=== PATIENT | male | born 1940 | race Caucasian/White ===

== ENCOUNTER 2016-12-19 09:50 | Emergency (ER) | payer MEDICARE, BC ==
--- NOTE | 2016-12-19 10:36 | ERPHSYRPT ---
- History of Present Illness Time Seen by Provider: 12/19/16 10:16 Source: patient, family Exam Limitations: no limitations Patient Subjective Stated Complaint: diarrhea x5 days Triage Nursing Assessment: diarrhea 5+ times daily for 5 days. went to [facility] yesterday and was given pedialyte and anti diarrheal (med gives heartburn but has taken 5 doses. denies abd pain. bs present. abd soft Physician History: The patient is a 76-year-old male with his complaining of 5 days of watery diarrhea without abdominal pain. He saw [facility] yesterday for this issue and was told to drink Pedialyte and take Levsin. He still has the problem and is feeling weak. He is not lightheaded. He has no abdominal pain. He has approximately 5 watery stools today. He denies nausea or vomiting. He has not had any change in his medicines recently. His past medical history is significant for CABG, high blood pressure, and high cholesterol. He's had shoulder surgeries and back surgeries. He's had no abdominal surgeries. Timing/Duration: day(s) (5) Severity: moderate Modifying Factors: Improves With: nothing Associated Symptoms: other (diarrhea), No nausea, No vomiting, No abdominal pain Allergies/Adverse Reactions: No Known Drug Allergies Allergy (Unverified 12/19/16 09:59) Home Medications: Aspirin 81 mg PO DAILY 05/13/16 [History] Diltiazem HCl 120 mg PO DAILY 05/13/16 [History] Ramipril [Altace] 10 mg PO DAILY 05/13/16 [History] Rivaroxaban [Xarelto] 15 mg PO DAILY 05/13/16 [History] Rosuvastatin Calcium [Crestor] 5 mg PO DAILY 05/13/16 [History] Hyoscyamine Sulfate [Levsin] 0.125 mg PO QIDPRN PRN 12/19/16 [History] Hx Tetanus, Diphtheria Vaccination/Date Given: Yes Hx Influenza Vaccination/Date Given: Yes Hx Pneumococcal Vaccination/Date Given: No Immunizations Up to Date: Yes - Review of Systems Constitutional: Weakness Eyes: No Symptoms Ears, Nose, & Throat: No Symptoms Respiratory: No Cough, No Dyspnea Cardiac: No Chest Pain, No Edema, No Syncope Abdominal/Gastrointestinal: Diarrhea Genitourinary Symptoms: No Dysuria Musculoskeletal: No Back Pain, No Neck Pain Skin: No Rash Neurological: No Dizziness, No Focal Weakness, No Sensory Changes Psychological: No Symptoms Endocrine: No Symptoms Hematologic/Lymphatic: No Symptoms Immunological/Allergic: No Symptoms All Other Systems: Reviewed and Negative - Past Medical History Pertinent Past Medical History: Yes Cardiac History: Arrhythmia, High Cholesterol, Hypertension - Past Surgical History Past Surgical History: Yes Cardiac: CABG Other Surgical History: bilat shoulder. vasectomy - Social History Smoking Status: Never smoker Exposure to second hand smoke: No Drug Use: none Patient Lives Alone: No - Nursing Vital Signs Nursing Vital Signs: Initial Vital Signs Temperature 98.3 F Temperature Source Oral Pulse Rate 64 Respiratory Rate 18 Blood Pressure [Left Arm] 138/80 Blood Pressure [Right Arm] 145/70 Pain Intensity 0 - Physical Exam General Appearance: no apparent distress, alert Eye Exam: PERRL/EOMI, eyes nml inspection Ears, Nose, Throat Exam: normal ENT inspection, TMs normal, pharynx normal, moist mucous membranes Neck Exam: normal inspection, non-tender, supple, full range of motion Respiratory Exam: normal breath sounds, lungs clear, No respiratory distress Cardiovascular Exam: regular rate/rhythm, normal heart sounds, normal peripheral pulses Gastrointestinal/Abdomen Exam: soft, normal bowel sounds, No tenderness, No mass Rectal Exam: not done Back Exam: normal inspection, normal range of motion, No CVA tenderness, No vertebral tenderness Extremity Exam: normal inspection, normal range of motion, pelvis stable Neurologic Exam: alert, oriented x 3, cooperative, normal mood/affect, nml cerebellar function, nml station & gait, sensation nml, No motor deficits Skin Exam: normal color, warm, dry, No rash Lymphatic Exam: No adenopathy SpO2 Interpretation: normal SpO2: 96 Oxygen Delivery: Room Air Ordered Tests: Active Orders 24 hr Category Date Time Status IV Insertion STAT Care 12/19/16 10:45 Active CBC W DIFF Stat Lab 12/19/16 10:40 Completed CMP Stat Lab 12/19/16 10:40 Completed Manual Differential NC Stat Lab 12/19/16 10:40 Completed Medication Summary Discontinued Medications Generic Name Dose Route Start Last Admin Trade Name Freq PRN Reason Stop Dose Admin Sodium Chloride 1,000 mls @ 999 mls/hr 12/19/16 10:45 12/19/16 10:51 Sodium Chloride 0.9% 1000 Ml IV 12/19/16 11:45 999 mls/hr .Q1H1M STA Administration Sodium Chloride Confirm 12/19/16 10:50 Sodium Chloride 0.9% 1000 Ml Administered 12/19/16 10:51 Dose 1,000 mls @ ud .ROUTE .K-MED ONE Lab/Rad Data: Laboratory Result Diagrams 12/19/16 10:40 12/19/16 10:40 Laboratory Results 12/19/16 12/19/16 12/19/16 Range/Units 10:50 10:40 10:40 WBC 4.6 (4.0-10.5) K/mm3 RBC 5.07 (4.1-5.6) M/mm3 Hgb 16.2 (12.5-18.0) gm/dl Hct 48.3 (42-50) % MCV 95.3 (78-100) fl MCH 32.0 (26-32) pg MCHC 33.5 (32-36) g/dl RDW 12.6 (11.5-14.0) % Plt Count 160 (150-450) K/mm3 MPV 10.6 H (6-9.5) fl Segmented Neutrophils 83 H (36.-66.) % Band Neutrophils 2 (0.0-2.0) % Lymphocytes (Manual) 14 L (24-44) % Monocytes (Manual) 1 (0.0-12.0) % Differential Comment NORMAL Platelet Estimate NORMAL (NORMAL) Sodium 139 (136-145) mEq/L Potassium 4.1 (3.5-5.1) mEq/L Chloride 105 (98-107) mEq/L Carbon Dioxide 23.7 (21-32) mEq/L Anion Gap 14.5 (5-15) MEQ/L BUN 22 H (9-20) mg/dL Creatinine 1.05 (0.55-1.30) mg/dl Estimated GFR > 60 ML/MIN Glucose 115 H (70-110) MG/DL Calcium 9.0 (8.5-10.1) mg/dL Total Bilirubin 0.40 (0.2-1.0) mg/dL AST 24 (15-37) U/L ALT 16 (12-78) U/L Alkaline Phosphatase 76 (46-116) U/L Serum Total Protein 7.8 (6.4-8.2) gm/dL Albumin 4.1 (3.4-5.0) g/dL Stl C. diff Tox B Gene NEGATIVE (NEGATIVE) C.difficile [id number] PRESUMPTIVE NEGATIVE (NEGATIVE) - Progress Progress: improved Counseled pt/family regarding: lab results, diagnosis - Departure Time of Disposition: 12:45 Departure Disposition: Home Clinical Impression: Diarrhea Condition: Stable Critical Care Time: No Additional Instructions: You have had several days of watery diarrhea. Your given normal saline by IV in the ER. Your lab tests were all normal and your stool test did not show any infectious agent at this time. Take ciprofloxacin 500 mg twice a day for 3 days. Start with a bland diet and advance as tolerated. Stay well hydrated. Follow-up Wednesday if the condition has not improved. Prescriptions: Ciprofloxacin [Cipro 500 MG] 1 tab PO BID #6 tablet
[2016-12-19] MEDS ORDERED: Sodium Chloride 0.9% 1000 ML 1,000 ML IV STA (10:45)
[2016-12-19] MEDS ORDERED: Sodium Chloride 0.9% 1000 ML 1,000 ML ONE (10:50)
[2016-12-19 11:06] LABS: Mean Cell Volume 95.3 fl (78-100); Mean Platelet Volume 10.6 fl (6-9.5); Platelet Count 160 K/mm3 (150-450); Red Blood Count 5.07 M/mm3 (4.1-5.6); Red Cell Distribution Width 12.6 % (11.5-14.0); White Blood Count 4.6 K/mm3 (4.0-10.5)
[2016-12-19 11:16] LABS: ALBUMIN 4.1 g/dL (3.4-5.0); ALKALINE PHOSPHATASE 76 U/L (46-116); ANION GAP 14.5 MEQ/L (5-15); BLOOD UREA NITROGEN 22 mg/dL (9-20); CHLORIDE 105 mEq/L (98-107); Carbon Dioxide 23.7 mEq/L (21-32); Glucose 115 MG/DL (70-110); Potassium 4.1 mEq/L (3.5-5.1); SGOT/AST 24 U/L (15-37); SGPT/ALT 16 U/L (12-78); SODIUM 139 mEq/L (136-145); Total Protein 7.8 gm/dL (6.4-8.2)
[2016-12-19 11:38] LABS: BAND 2 % (0.0-2.0); Total Cells Counted 100
[2016-12-19 11:39] LABS: Platelet Estimate NORMAL (NORMAL)
[2016-12-19 12:49] VITALS: O2SAT 96
[2016-12-19 12:55] VITALS: BP 136/80; PULSE 62
[2016-12-21 13:09] LABS: Giardia Antigen EIA Negative (Negative)
== END 2016-12-19 12:50 ==
LOC: ED 09:50
DX: R19.7 Diarrhea, unspecified (principal)
CPT/HCPCS: 36000; 36415; 80053; 85025; 87045; 87046; 87177; 87209; 87335; 87493; 96360; 99284

== ENCOUNTER 2017-06-10 07:21 | Day surgery (SDC) | payer MEDICARE, BC ==
[~2017-06-10 07:21] MED LIST: Lactated Ringers 1,000 ML IV SCH
[2017-06-10] MEDS ORDERED: Versed 2 MG/2 ML Injection IV ONE (07:22)
[2017-06-10] MEDS ORDERED: DIPRIVAN 200 MG/20 ML IV ONE (07:22)
[2017-06-10] MEDS ORDERED: Lactated Ringers 1,000 ML IV ONE (07:28)
--- NOTE | 2017-06-10 07:34 | HP ---
DATE OF SURGERY: 06/10/2017 ADMISSION DIAGNOSIS: Screening. ANTICIPATED PROCEDURE: Colonoscopy. HISTORY OF PRESENT ILLNESS: The patient presents for screening colonoscopy. PAST MEDICAL HISTORY: Hyperlipidemia, hypertension, ischemic heart disease, paroxysmal atrial fibrillation status post coronary artery bypass grafting four vessel 2001. ALLERGIES: PER CHART. MEDICATIONS: Aspirin, Crestor, diltiazem, Nitrostat, Ramipril, Xarelto. Xarelto on hold at this time. PAST SURGICAL HISTORY: None recently. SOCIAL HISTORY: Negative. FAMILY HISTORY: Negative. REVIEW OF SYSTEMS: Cardiac disease. Pulmonary negative. GI negative. negative. PHYSICAL EXAMINATION: VITAL SIGNS: Normal. CHEST: Clear. COR: Regular. ABDOMEN: No palpable organomegaly or mass. IMPRESSION: Long standing coronary disease, atrial fibrillation, hypertension, anticoagulation. He is requiring a screening colonoscopy and presents for such.
[2017-06-10 10:56] VITALS: BP 125/57; PULSE 51; O2SAT 97
--- NOTE | 2017-06-10 15:00 | OP ---
SURGERY DATE/TIME: 06/10/2017 0940 PREOPERATIVE DIAGNOSIS: Screening. POSTOPERATIVE DIAGNOSIS: Moderate sigmoid diverticulosis, moderate internal hemorrhoids. No mucosal lesions. No expected follow up unless symptoms. PROCEDURE: Colonoscopy complete to cecum. SURGEON: Phong Robb M.D. ANESTHESIA: MAC. COMPLICATIONS: None. CONDITION: Stable. INDICATION: The patient is 77 years old and presents for screening examination. DESCRIPTION OF PROCEDURE: Taken to the endoscopy suite. Left lateral decubitus position. After suitable sedation obtained the scope advanced to the cecum. Cecum, ileocecal valve, base of the cecum was normal. Ascending, hepatic, transverse, splenic, descending was normal. There was moderate diverticulosis about 20 pouches. There was no suggestion of any issues. There were moderate internal hemorrhoids. No external hemorrhoids. No blood on today's examination. No mucosal lesions on examination. 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 PLAN: There is no planned follow up as the patient did not have any polyps and he is near 78 years old. Follow up for symptoms only.
== END 2017-06-10 11:01 | disposition home or self-care (01) ==
LOC: SDC 07:21
PROVIDERS: ATTEND Surgery
PROC: 0DJD8ZZ Inspection of Lower Intestinal Tract, Via Natural or Artificial Opening Endoscopic (ICD-10-PCS; principal; 2017-06-10)
DX: Z12.11 Encounter for screening for malignant neoplasm of colon (principal); K57.90 Diverticulosis of intestine, part unspecified, without perforation or abscess without bleeding; K64.8 Other hemorrhoids; E78.5 Hyperlipidemia, unspecified; I10 Essential (primary) hypertension; I25.9 Chronic ischemic heart disease, unspecified; I48.0 Paroxysmal atrial fibrillation; Z79.01 Long term (current) use of anticoagulants; Z79.899 Other long term (current) drug therapy; Z98.61 Coronary angioplasty status
CPT/HCPCS: 00810; 99100; J2250; J2704

== ENCOUNTER 2020-06-13 09:41 | Emergency (ER) | payer MEDICARE, BC ==
[2020-06-13 10:14] VITALS: BP 166/72; PULSE 61; O2SAT 96
[2020-06-13] MEDS ORDERED: Adacel Vial IM ONE ×2 (10:17→10:22)
--- NOTE | 2020-06-13 10:24 | ERPHSYRPT ---
- History of Present Illness Source: patient Exam Limitations: no limitations Patient Subjective Stated Complaint: laceration Triage Nursing Assessment: pt to ED c/o lac to pad of L thumb less than 1 cm. bleeding controlled on arrival. pt does take xarelto. reports he was wood working and caught thumb in saw. unknown last tetanus vaccine. rates 09/11 pain. skin PWD. cap refill < 3 sec and no loss sensation distal to injury. Physician History: Superficial laceration L 1st digit tip/Good hemostasis/no need for repair/No previous-other injury/Pt needs tetanus. Timing/Duration: other (1 hr before arrival) Quality: other (Minimal pain at best) Location: other (L 1st digit tip) Possible Causes: other (Saw) Associated Symptoms: denies symptoms Allergies/Adverse Reactions: No Known Drug Allergies Allergy (Verified 06/13/20 10:16) Home Medications: Aspirin 81 mg PO DAILY 05/13/16 [History] Ramipril [Altace] 10 mg PO DAILY 05/13/16 [History] Rivaroxaban [Xarelto] 15 mg PO DAILY 05/13/16 [History] Rosuvastatin Calcium [Crestor] 5 mg PO DAILY 05/13/16 [History] dilTIAZem HCL [Diltiazem HCl] 120 mg PO DAILY 05/13/16 [History] Hx Tetanus, Diphtheria Vaccination/Date Given: No (unknown 06/2020) Hx Influenza Vaccination/Date Given: Yes Hx Pneumococcal Vaccination/Date Given: No Travel Risk - International Travel Have you traveled outside of the country in past 3 weeks: No - Coronavirus Screening Are you exhibiting any of the following symptoms?: No Close contact with a COVID-19 positive Pt in past 14-21 Days: No - Review of Systems Constitutional: No Symptoms Eyes: No Symptoms Ears, Nose, & Throat: No Symptoms Respiratory: No Symptoms Cardiac: No Symptoms Abdominal/Gastrointestinal: No Symptoms Genitourinary Symptoms: No Symptoms Neurological: No Symptoms Psychological: No Symptoms Endocrine: No Symptoms Hematologic/Lymphatic: No Symptoms Immunological/Allergic: No Symptoms - Past Medical History Pertinent Past Medical History: Yes Neurological History: No Pertinent History ENT History: No Pertinent History Cardiac History: Arrhythmia, High Cholesterol, Hypertension Respiratory History: No Pertinent History Endocrine Medical History: No Pertinent History Musculoskeletal History: Other GI Medical History: No Pertinent History History: No Pertinent History Psycho-Social History: No Pertinent History Male Reproductive Disorders: No Pertinent History Other Medical History: jens rotat. cuff injury - Past Surgical History Past Surgical History: Yes Neuro Surgical History: No Pertinent History Cardiac: CABG Respiratory: No Pertinent History Gastrointestinal: No Pertinent History Genitourinary: No Pertinent History Musculoskeletal: Orthopedic Surgery Male Surgical History: No Pertinent History Other Surgical History: bilat shoulder rotator cuff repair. vasectomy, discectomy - Social History Smoking Status: Never smoker Exposure to second hand smoke: No Drug Use: none Patient Lives Alone: No Significant Family History: no pertinent family hx - Nursing Vital Signs Nursing Vital Signs: Initial Vital Signs Temperature 97.8 F 06/13/20 10:08 Pulse Rate 61 06/13/20 10:08 Respiratory Rate 18 06/13/20 10:08 Blood Pressure 166/72 06/13/20 10:08 O2 Sat by Pulse Oximetry 96 06/13/20 10:08 Pain Scale Pain Intensity 3 - Physical Exam General Appearance: no apparent distress Eye Exam: PERRL/EOMI, eyes nml inspection Ears, Nose, Throat Exam: normal ENT inspection, TMs normal, pharynx normal Neck Exam: normal inspection, non-tender, supple, No meningismus, No mass, No Brudzinski, No Kernig's, No carotid bruit Respiratory Exam: normal breath sounds, lungs clear, airway intact Cardiovascular Exam: regular rate/rhythm, murmur (1-2/6 BLAISE) Gastrointestinal/Abdomen Exam: soft, normal bowel sounds, No tenderness Back Exam: normal inspection, normal range of motion, No CVA tenderness Extremity Exam: other (Suyperficial skin tear L distal 1st digit wo need for repair) Neurologic Exam: alert, oriented x 3, 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, 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, normal mood/affect, nml cerebellar function, nml station & gait, sensation nml, No sensory deficit Skin Exam: normal color, warm, dry, No rash Lymphatic Exam: No adenopathy SpO2 Interpretation: normal SpO2: 96 O2 Delivery: Room Air - Course Nursing assessment & vital signs reviewed: Yes Ordered Tests: Medication Summary Discontinued Medications Generic Name Dose Route Start Last Admin Trade Name Freq PRN Reason Stop Dose Admin Diphtheria/Tetanus/Acell Pertussis 0.5 ml 06/13/20 10:17 06/13/20 10:23 Adacel Vial IM 06/13/20 10:18 0.5 ml .ONCE ONE Administration Diphtheria/Tetanus/Acell Pertussis Confirm 06/13/20 10:22 Adacel Vial Administered 06/13/20 10:23 Dose 0.5 ml IM .STK-MED ONE - Progress Progress: improved Progress Note: 06/13/20 10:22 Superficial skin flap L 1st digit pad/[id number]-[id number] w hibiclens/no need for repair/Tdap Counseled pt/family regarding: need for follow-up - Departure Departure Disposition: Home Clinical Impression: Laceration Condition: Stable Critical Care Time: No Referrals: GUSTAVO DAVIS MD [Primary Care Provider] - Instructions: Wound Care (DC) Additional Instructions: Keep wound dry for 48 hours, then wash 1-2 times a day with soap/water Watch for signs of infection-redness/pain/pus/temperature greater than 100.5 Keep steri-strips on until they fall off or 10 days
== END 2020-06-13 10:46 | disposition home or self-care (01) ==
LOC: ED 09:41
DX: S61.012A Laceration without foreign body of left thumb without damage to nail, initial encounter (principal); I10 Essential (primary) hypertension; E78.00 Pure hypercholesterolemia, unspecified
CPT/HCPCS: 90471; 90715; 99283

== ENCOUNTER 2021-12-29 08:35 | Day surgery (SDC) | payer MEDICARE, BC ==
--- NOTE | 2021-12-29 08:09 | HP ---
DATE OF SURGERY: 12/29/2021 HISTORY OF PRESENT ILLNESS: The patient is an 81-year-old with right abdominal pain worse when out playing golf. Last colonoscopy was three to five years ago. He is here for evaluation. PAST MEDICAL HISTORY: Coronary artery disease, hypertension, hypercholesterolemia, history of atrial fibrillation, history of COVID-19 in the past. PAST SURGICAL HISTORY: Coronary artery bypass graft. Bilateral shoulder surgery. Vasectomy. Discectomy in the past. MEDICATIONS: Aspirin, diltiazem, Nitrostat PRN, Chlorthalidone, Ramipril, rosuvastatin for hyperlipidemia, Xarelto. ALLERGIES: NKDA. FAMILY HISTORY: Heart disease, diabetes. SOCIAL HISTORY: No smoking or alcohol abuse. REVIEW OF SYSTEMS: Fourteen systems reviewed. No chest pain or palpitations. Other systems negative or noncontributory as above and per preadmission questionnaire. PHYSICAL EXAMINATION: GENERAL: No acute distress. HEENT: Sclerae nonicteric. NECK: No JVD. CHEST: Equal excursion. CVS: Regular rate and rhythm. ABDOMEN: Soft. He had some tenderness right lower abdomen. No rebound. No guarding. No evidence of any large palpable hernia at this time. EXTREMITIES: No significant edema. NEURO: Alert, oriented, moving extremities symmetrically. RECTAL: Deferred timed to endoscopy exam. PSYCH: Appropriate mood and affect. LAB DATA AND TESTS: CT scan showed cholelithiasis. He is not having any major right upper quadrant pain at this point more lower abdominal pain. No evidence of any palpable large hernia at this time. IMPRESSION: Right lower abdominal pain unclear etiology. Last colonoscopy was about five years or so ago. He is in need of follow up colonoscopy to evaluate for colitis, neoplasia or other etiology. If this is negative may need to consider diagnostic laparoscopy if he has persistent pain to evaluate whether he had some sort of occult hernia and to also consider cholecystectomy given his gallstones. At this time will proceed first with colonoscopy. General risk of bleeding or infection, risk of bowel injury or perforation possibly requiring further procedure, risk of missed or nondiagnosis or incomplete exam, possibly requiring barium enema, other studies or procedures, general risk of anesthesia or sedation, risk of bowel prep or sedation but not limited to, consent obtained. Will proceed with outpatient colonoscopy under MAC anesthesia.
[2021-12-29] MEDS ORDERED: Lactated Ringers 1,000 ML IV ONE (08:44)
[2021-12-29 12:27] VITALS: PULSE 72; O2SAT 99
[2021-12-29 12:42] VITALS: BP 172/70
--- NOTE | 2021-12-30 08:18 | OP ---
SURGERY DATE/TIME: 12/29/2021 1118 PREOPERATIVE DIAGNOSIS: History of right side abdominal pain of unclear etiology. POSTOPERATIVE DIAGNOSES: 1) ASA Class III. 2) Fair bowel prep. 3) Small left colon diverticula. 4) Small very early cecal polyp versus hyperplastic lesion. 5) Small early polyp versus hyperplastic lesion. 6) Small early polyp versus hyperplastic lesion ascending colon. 7) Fair bowel prep. 8) Withdrawal time approximately 9 minutes. PROCEDURES: 1) Colonoscopy to terminal ileum. 2) Retrograde Ileoscopy. 3) Random cold biopsy of ileum to evaluate for microscopic ileitis. 4) Random cold biopsy of colon to evaluate for microscopic colitis. 5) Hot biopsy polypectomy very early polyp versus hyperplastic lesion of cecum. 6) Hot biopsy polypectomy small early polyp versus hyperplastic lesion of ascending colon. SURGEON: Dr. Amrik Flores. ANESTHESIA: MAC. ESTIMATED BLOOD LOSS: Minimal. INDICATIONS: As noted above. Risks and benefits explained in detail but not limited to and consent obtained. DESCRIPTION OF PROCEDURE AND FINDINGS: The patient is taken to the endoscopy room. MAC anesthesia induced. After official time out and no disagreement with planned procedure, video colonoscope inserted and passed up through the slightly tortuous sigmoid, descending, transverse and ascending colon around to the cecum. Appendiceal orifice and valve well visualized and photo documented. Scope passed up the terminal ileum which was also photo documented. It was fairly unremarkable. Given his right sided abdominal pain, it was felt he warranted biopsy to rule out microscopic ileitis or microscopic colitis. Random cold biopsies from the ileum were sent for histology. Random cold biopsies of the colon were also sent to evaluate for microscopic colitis. Good hemostasis was noted. There was a small early polyp versus hyperplastic lesion in the cecum removed with hot biopsy forceps with brief bursts of cautery. Another small early polyp versus hyperplastic lesion ascending colon removed with hot biopsy polypectomy with brief bursts of cautery. Good hemostasis was noted. Otherwise the scope is slowly and carefully withdrawn over the next 9 minutes. He had a few scattered small diverticula in the left colon. There were no signs of any other large polyps, masses or any other obstructing lesion. Findings discussed with the family out in the waiting area.
== END 2021-12-29 12:30 | disposition home or self-care (01) ==
LOC: SDC 08:35
PROVIDERS: ATTEND Surgery
DX: K57.30 Diverticulosis of large intestine without perforation or abscess without bleeding (principal); D12.2 Benign neoplasm of ascending colon; R10.84 Generalized abdominal pain
CPT/HCPCS: 99100

== ENCOUNTER 2022-06-01 04:21 | Emergency (ER) | payer MEDICARE, BC ==
[2022-06-01] MEDS ORDERED: BABY ASPIRIN 81 MG CHEW PO ONE (04:48)
[2022-06-01] MEDS ORDERED: GI COCKTAIL 45 ML (Maalox/Lidocaine) PO ONE (04:49)
--- NOTE | 2022-06-01 04:49 | ERPHSYRPT ---
- History of Present Illness Historian: patient Exam Limitations: no limitations Patient Subjective Stated Complaint: pt states "since around last night before bed I have been having this upper stomach pain." Triage Nursing Assessment: pt ambulatory to bed by self, a&ox3, pt c/o epigastric pain that started around 212905/31/22, pt has hx of CA, CABG, high cholesterol, afib, and HTN. pt is hypertensive, pt c/o 4/10 burning pain Timing/Duration: day(s), intermittent, worse Quality: burning Abdominal Pain Onset Location: epigastric Pain Radiation: no radiation Severity of Pain-Max: moderate Severity of Pain-Current: mild (To moderate) Hx Tetanus, Diphtheria Vaccination/Date Given: Yes Hx Influenza Vaccination/Date Given: Yes Hx Pneumococcal Vaccination/Date Given: No Immunizations Up to Date: No - History of Present Illness Time Seen by Provider: 06/01/22 04:25 Physician History: This is an 81-year-old white male who presents with caudal substernal/epigastric discomfort described as a burning. Patient has significant cardiac history that includes atrial fibrillation, hypertension, coronary artery bypass graft on Xarelto and aspirin and hyperlipidemia. Patient's symptoms actually began 2 nights ago. However 2 nights ago his symptoms as described above presented and then relatively swiftly resolved. However it recurred again last night approximately 9:30 PM and it has persisted. He has had no nausea vomiting or diarrhea. He has no cough. He has not had a fever. 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 Edmond (RICKIEALEXANDRA F.) Allergies/Adverse Reactions: No Known Drug Allergies Allergy (Verified 06/01/22 04:23) Home Medications: Aspirin 81 mg PO DAILY 05/13/16 [History] Rosuvastatin Calcium [Crestor] 5 mg PO DAILY 05/13/16 [History] dilTIAZem HCL [Diltiazem HCl] 120 mg PO DAILY 05/13/16 [History] ramipriL [Altace] 10 mg PO DAILY 05/13/16 [History] Travel Risk - International Travel Have you traveled outside of the country in past 3 weeks: No - Coronavirus Screening Are you exhibiting any of the following symptoms?: No Close contact with a COVID-19 positive Pt in past 14-21 Days: No - Vaccine Status Have you recieved a Covid-19 vaccination: Yes 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: [employer] - Vaccination Dates Date of 2cond Vaccination (if applicable): 2020 - Review of Systems Constitutional: No Symptoms Eyes: No Symptoms Ears, Nose, & Throat: No Symptoms Respiratory: No Symptoms Abdominal/Gastrointestinal: Abdominal Pain (Upper epigastric burning) Genitourinary Symptoms: No Symptoms Musculoskeletal: No Symptoms Skin: No Symptoms Neurological: No Symptoms Psychological: No Symptoms Endocrine: No Symptoms Hematologic/Lymphatic: No Symptoms Immunological/Allergic: No Symptoms All Other Systems: Reviewed and Negative - Past Medical History Pertinent Past Medical History: Yes Neurological History: No Pertinent History ENT History: No Pertinent History Cardiac History: Arrhythmia, High Cholesterol, Hypertension Respiratory History: No Pertinent History Endocrine Medical History: No Pertinent History Musculoskeletal History: Other GI Medical History: No Pertinent History History: No Pertinent History Psycho-Social History: No Pertinent History Male Reproductive Disorders: No Pertinent History Other Medical History: jens rotat. cuff injury - Past Surgical History Past Surgical History: Yes Neuro Surgical History: No Pertinent History Cardiac: CABG Respiratory: No Pertinent History Gastrointestinal: No Pertinent History Genitourinary: No Pertinent History Musculoskeletal: Orthopedic Surgery Male Surgical History: No Pertinent History Other Surgical History: bilat shoulder rotator cuff repair. vasectomy, discectomy - Social History Smoking Status: Never smoker Exposure to second hand smoke: No Drug Use: none Patient Lives Alone: No Significant Family History: no pertinent family hx - Physical Exam General Appearance: no apparent distress, alert, anxiety Eye Exam: PERRL/EOMI, eyes nml inspection Ears, Nose, Throat Exam: normal ENT inspection, moist mucous membranes Neck Exam: normal inspection, non-tender, supple, carotid bruit Respiratory Exam: normal breath sounds, chest tenderness (Caudal sternal burning), lungs clear, airway intact, No respiratory distress Cardiovascular Exam: regular rate/rhythm, normal heart sounds, normal peripheral pulses Gastrointestinal/Abdomen Exam: soft, normal bowel sounds, tenderness (Mild upper epigastric burning), No guarding Rectal Exam: not done Back Exam: normal inspection, normal range of motion, No CVA tenderness, No vertebral tenderness Extremity Exam: normal inspection, normal range of motion, pelvis stable Neurologic Exam: alert, oriented x 3, cooperative, apparel manager II-XII nml as tested, normal mood/affect, nml cerebellar function, nml station & gait, sensation nml Skin Exam: normal color, warm, dry Lymphatic Exam: No adenopathy SpO2 Interpretation: normal SpO2: 97 O2 Delivery: Room Air - Nursing Vital Signs Nursing Vital Signs: Initial Vital Signs Temperature 97.6 F 06/01/22 04:22 Pulse Rate 66 06/01/22 04:22 Respiratory Rate 18 06/01/22 04:22 Blood Pressure 204/81 06/01/22 04:22 O2 Sat by Pulse Oximetry 97 06/01/22 04:22 Pain Scale Pain Intensity [Upper Abdomen] 4 Pain Intensity 0 - Course Nursing assessment & vital signs reviewed: Yes EKG Interpreted by Me: RATE (66), Sinus Rhythm, NORMAL AXIS, NORMAL INTERVALS, NORMAL QRS, Non-specific ST Changes, Other (PVCs without evidence of any acute ischemic changes.) Ordered Tests: Active Orders 24 hr Category Date Time Status EKG-ER Only STAT Care 06/01/22 04:48 Active IV Insertion STAT Care 06/01/22 04:48 Active Pulse Oximetry (ED) STAT Care 06/01/22 04:48 Active CHEST 1 VIEW (PORTABLE) Stat Exams 06/01/22 04:48 Taken CBC W DIFF Stat Lab 06/01/22 04:53 Completed CMP Stat Lab 06/01/22 04:53 Completed D-DIMER QUANTITATIVE Stat Lab 06/01/22 04:53 Completed NT PRO BNP Stat Lab 06/01/22 04:53 Completed TROPONIN Q4H Lab 06/01/22 04:53 Completed TROPONIN Q4H Lab 06/01/22 08:00 Completed TROPONIN Q4H Lab 06/01/22 13:00 Ordered Medication Summary Discontinued Medications Generic Name Dose Route Start Last Admin Trade Name Freq PRN Reason Stop Dose Admin Al Hydrox/Mg Hydrox/Simethicone Confirm 06/01/22 04:53 Mag Hydrox/Al Hydrox/Simeth 30 Ml Udcup Administered 06/01/22 04:54 Dose 30 ml .ROUTE .STK-MED ONE Aspirin 324 mg 06/01/22 04:48 06/01/22 04:52 Aspirin 81 Mg Tab.Chew PO 06/01/22 04:49 324 mg STAT ONE Administration Lidocaine HCl Confirm 06/01/22 04:52 Lidocaine Hcl 2% Viscous 15 Ml Udcup Administered 06/01/22 04:53 Dose 15 ml .ROUTE .STK-MED ONE Magnesium Hydroxide 45 ml 06/01/22 04:49 06/01/22 04:54 Mag Hydrx/Alum Hyd/Simeth/Lido 45 Ml Bottle PO 06/01/22 04:50 45 ml STAT ONE Administration Lab/Rad Data: Laboratory Result Diagrams 06/01/22 04:53 06/01/22 04:53 Laboratory Results 06/01/22 06/01/22 06/01/22 Range/Units 08:00 04:53 04:53 WBC (4.0-10.5) x10^3/uL RBC (4.1-5.6) x10^6/uL Hgb (12.5-18.0) g/dL Hct (42-50) % MCV (78-100) fL MCH (26-32) pg MCHC (32-36) g/dL RDW (11.5-14.0) % Plt Count (150-450) x10^3/uL MPV (7.5-11.0) fL Gran % (36.0-66.0) % Immature Gran % (Auto) (0.00-0.4) % Nucleat RBC Rel Count (0.00-0.1) % Eos # (Auto) (0-0.5) x10^3/uL Immature Gran # (Auto) (0.00-0.03) x10^3u/L Absolute Lymphs (auto) (1.0-4.6) x10^3/uL Absolute Monos (auto) (0.0-1.3) x10^3/uL Absolute Nucleated RBC (0.00-0.01) x10^3u/L Lymphocytes % (24.0-44.0) % Monocytes % (0.0-12.0) % Eosinophils % (0.00-5.0) % Basophils % (0.0-0.4) % Absolute Granulocytes (1.4-6.9) x10^3/uL Basophils # (0-0.4) x10^3/uL D-Dimer 0.25 (0.0-0.50) mg/L Sodium (137-145) mmol/L Potassium (3.5-5.1) mmol/L Chloride (98-107) mmol/L Carbon Dioxide (22-30) mmol/L Anion Gap (5-15) MEQ/L BUN (9-20) mg/dL Creatinine (0.66-1.25) mg/dL Estimated GFR ML/MIN Glucose (74-106) mg/dL Calcium (8.4-10.2) mg/dL Total Bilirubin (0.2-1.3) mg/dL AST (17-59) U/L ALT (0-50) U/L Alkaline Phosphatase (38-126) U/L Troponin I < 0.012 < 0.012 (0.000-0.034) ng/mL NT-Pro-B Natriuret Pep (0-1800) pg/mL Serum Total Protein (6.3-8.2) g/dL Albumin (3.5-5.0) g/dL 06/01/22 06/01/22 Range/Units 04:53 04:53 WBC 8.0 (4.0-10.5) x10^3/uL RBC 4.50 (4.1-5.6) x10^6/uL Hgb 14.3 (12.5-18.0) g/dL Hct 43.0 (42-50) % MCV 95.6 (78-100) fL MCH 31.8 (26-32) pg MCHC 33.3 (32-36) g/dL RDW 12.3 (11.5-14.0) % Plt Count 213 (150-450) x10^3/uL MPV 9.9 (7.5-11.0) fL Gran % 70.3 H (36.0-66.0) % Immature Gran % (Auto) 0.3 (0.00-0.4) % Nucleat RBC Rel Count 0.0 (0.00-0.1) % Eos # (Auto) 0.08 (0-0.5) x10^3/uL Immature Gran # (Auto) 0.02 (0.00-0.03) x10^3u/L Absolute Lymphs (auto) 1.57 (1.0-4.6) x10^3/uL Absolute Monos (auto) 0.66 (0.0-1.3) x10^3/uL Absolute Nucleated RBC 0.00 (0.00-0.01) x10^3u/L Lymphocytes % 19.7 L (24.0-44.0) % Monocytes % 8.3 (0.0-12.0) % Eosinophils % 1.0 (0.00-5.0) % Basophils % 0.4 (0.0-0.4) % Absolute Granulocytes 5.61 (1.4-6.9) x10^3/uL Basophils # 0.03 (0-0.4) x10^3/uL D-Dimer (0.0-0.50) mg/L Sodium 135 L (137-145) mmol/L Potassium 4.0 (3.5-5.1) mmol/L Chloride 105 (98-107) mmol/L Carbon Dioxide 23 (22-30) mmol/L Anion Gap 10.7 (5-15) MEQ/L BUN 25 H (9-20) mg/dL Creatinine 0.90 (0.66-1.25) mg/dL Estimated GFR > 60.0 ML/MIN Glucose 124 H (74-106) mg/dL Calcium 9.1 (8.4-10.2) mg/dL Total Bilirubin 0.40 (0.2-1.3) mg/dL AST 24 (17-59) U/L ALT 22 (0-50) U/L Alkaline Phosphatase 99 (38-126) U/L Troponin I (0.000-0.034) ng/mL NT-Pro-B Natriuret Pep 207 (0-1800) pg/mL Serum Total Protein 7.1 (6.3-8.2) g/dL Albumin 4.3 (3.5-5.0) g/dL - Progress Progress: improved, re-examined Counseled pt/family regarding: lab results, diagnosis, need for follow-up, rad results - Progress Progress Note: 06/01/22 05:23 Chest x-ray shows chronic changes and no acute cardiopulmonary process. 06/01/22 06:17 Medical decision making: This patient now states that he has complete resolution of his chest pain. He did eat a hamburger the night before last. Last night he had pizza. Patient does not appear to have a cardiac issue but may be a gastritis or gastroesophageal reflux issue. His chest pain has resolved. We will keep him here to obtain a 3-4-hour troponin level. If this is normal the plan will be to discharge him to home. Transfer of care this patient will be to Dr. Colt Syed at shift change. He will follow-up with that test result and make final disposition. (ALEXANDRA DAMIAN) Patient endorsed Dr. Syed at approximately [address] Syed advised to follow-up on troponin #2 and if troponin #2 is negative patient will be discharged home. Dr. Damian does not feel patient's pain is cardiac in nature. Patient appears to be experiencing burning epigastric pain likely due to a fatty diet over the past couple days. Patient reassessed. He is well. No complaints. No chest pain. No indication for further work-up at this time. Will discharge home. Patient advised and agrees to follow-up with primary care doctor within 48 hours for evaluation. Patient will try [id number] Pepcid for his symptoms. Pantoprazole may be an option if Pepcid is not beneficial Portions of this note were created with voice recognition technology. There may be grammatical, spelling, punctuation or sound alike errors 06/01/22 08:49 (COLT SYED) - Departure Departure Disposition: Home Critical Care Time: No - Departure Clinical Impression: Non-cardiac chest pain Condition: Stable Referrals: GUSTAVO DAVIS MD [Primary Care Provider] - Follow up/PCP as directed Additional Instructions: Continue your medication as prescribed. Call your financial controller today and make them aware of your visit to the emergency department. Follow-up with them for further instructions and further evaluation and management. Avoid fatty greasy spicy foods at night.
[2022-06-01] MEDS ORDERED: XYLOCAINE VISCOUS 2% 15 ML CUP ONE (04:52)
[2022-06-01] MEDS ORDERED: MAALOX ES 30 ML UNIT DOSE ONE (04:53)
[2022-06-01 04:56] LABS: Absolute Neutrophil Ct (ANC) 5.61 x10^3/uL (1.4-6.9); Basophil (Absolute #) 0.03 x10^3/uL (0-0.4); Eosinophil (Absolute #) 0.08 x10^3/uL (0-0.5); Hemoglobin 14.3 g/dL (12.5-18.0); Lymphocyte (Absolute #) 1.57 x10^3/uL (1.0-4.6); Lymphocytes % 19.7 % (24.0-44.0); Mean Cell Volume 95.6 fL (78-100); Mean Corpuscular Hemoglobin 31.8 pg (26-32); Mean Corpuscular Hgb Concent. 33.3 g/dL (32-36); Mean Platelet Volume 9.9 fL (7.5-11.0); Monocyte (Absolute #) 0.66 x10^3/uL (0.0-1.3); Monocytes % 8.3 % (0.0-12.0); Neutrophil % 70.3 % (36.0-66.0); Platelet Count 213 x10^3/uL (150-450); Red Cell Distribution Width 12.3 % (11.5-14.0)
[2022-06-01 05:12] LABS: ALBUMIN 4.3 g/dL (3.5-5.0); ALKALINE PHOSPHATASE 99 U/L (38-126); ANION GAP 10.7 MEQ/L (5-15); BLOOD UREA NITROGEN 25 mg/dL (9-20); CHLORIDE 105 mmol/L (98-107); Calcium 9.1 mg/dL (8.4-10.2); Carbon Dioxide 23 mmol/L (22-30); EST GLOMERULAR FILTRATION RATE > 60.0 ML/MIN; Glucose 124 mg/dL (74-106); NT PRO BNP 207 pg/mL (0-1800); SGOT/AST 24 U/L (17-59); SGPT/ALT 22 U/L (0-50); SODIUM 135 mmol/L (137-145); Total Protein 7.1 g/dL (6.3-8.2)
[2022-06-01 07:02] VITALS: BP 169/83; PULSE 56; O2SAT 94
--- NOTE | 2022-06-01 08:49 | XRAY ---
Indication: Chest pain. Comparison: June 22, 2006 Portable chest again hyperinflated with new minimal left base subsegmental atelectasis/scarring. Remaining heart and lungs unremarkable again with incidental CABG and tiny scattered calcified granulomas. Bony thorax intact again with osteopenia, degenerative changes, and cervical fusion hardware. Impression: Continued nonacute hyperinflated chest with chronic features.
== END 2022-06-01 09:11 | disposition home or self-care (01) ==
LOC: ED 04:21
DX: R07.89 Other chest pain (principal); R10.13 Epigastric pain; I10 Essential (primary) hypertension; E78.5 Hyperlipidemia, unspecified; Z79.01 Long term (current) use of anticoagulants; Z79.899 Other long term (current) drug therapy
CPT/HCPCS: 36000; 36415; 71045; 80053; 83880; 84484; 85025; 85379; 93005; 94760; 99284; A9270-GY

== ENCOUNTER 2022-07-20 08:34 | Day surgery (SDC) | payer MEDICARE, BC ==
--- NOTE | 2022-07-20 08:09 | HP ---
DATE OF SURGERY: 07/20/2022 HISTORY OF PRESENT ILLNESS: The patient is an 82-year-old with history develops once a year, a month or six weeks ago had a large hamburger and he had epigastric pain about midnight. He had puked and the next night he had more symptoms worse than biliary colic. He is interested in cholecystectomy. PAST MEDICAL HISTORY: He has heart disease. He had triple bypass in the past. He has hearing aids. PAST SURGICAL HISTORY: Triple bypass. Discectomy. Vasectomy. Bilateral rotator cuff surgery in the past. MEDICATIONS: Aspirin, Crestor for some hyperlipidemia, diltiazem, Ramipril, Xarelto. ALLERGIES: NKDA. FAMILY HISTORY: Negative in regards to this problem. SOCIAL HISTORY: No smoking or alcohol abuse. REVIEW OF SYSTEMS: Fourteen systems reviewed. No chest pain or palpitations. Pertinent for chronic illnesses mentioned above. Other systems negative or noncontributory as above and per preadmission questionnaire. PHYSICAL EXAMINATION: BMI 24. GENERAL: No acute distress. HEENT: Sclerae nonicteric. NECK: No JVD. CHEST: Equal excursion, nonlabored breathing. CVS: Regular rate and rhythm. ABDOMEN: Soft. No peritoneal signs. EXTREMITIES: No significant edema. NEURO: Alert, oriented, moving extremities symmetrically. PSYCH: Appropriate mood and affect. SKIN: Dry. IMPRESSION: Acute exacerbation of chronic cholecystitis, symptomatic cholelithiasis. I feel he will benefit from cholecystectomy. Risks and benefits explained in detail including but not limited to bleeding or infection, risk of trocar injury or hernia, risk of bowel, bladder or blood vessel injury, risk of bile leak, bile duct injury, retained stone or sludge possibly requiring further procedure either open or ERCP, general risk of anesthesia, deep venous thrombosis, pulmonary embolism, perioperative risk of aches, pains, bloating, constipation and/or loose stools possibly even chronic in nature. He understands and will proceed with laparoscopic cholecystectomy with possible open as an outpatient.
[~2022-07-20 08:34] MED LIST changes: +Lactated Ringers 1,000 ML IV ONE; -Lactated Ringers 1,000 ML IV SCH; +Sensorcaine 0.25% 10 ML ONE
[2022-07-20] MEDS ORDERED: MEFOXIN 2 GM PREMIX** 2 GM/50 ML ML IV ONE (09:19)
[2022-07-20] MEDS ORDERED: Lactated Ringers 1,000 ML IV ONE (09:19)
[2022-07-20] MEDS ORDERED: Lactated Ringers 1,000 ML IV SCH (09:30)
[2022-07-20] MEDS ORDERED: MEFOXIN 2 GM PREMIX** 2 GM/50 ML ML IV SCH (10:00)
[2022-07-20 10:41] LABS: ANION GAP 9.8 MEQ/L (5-15); BLOOD UREA NITROGEN 14 mg/dL (9-20); CHLORIDE 106 mmol/L (98-107); Calcium 9.2 mg/dL (8.4-10.2); Carbon Dioxide 26 mmol/L (22-30); Creatinine 1 0.85 mg/dL (0.66-1.25); EST GLOMERULAR FILTRATION RATE > 60.0 ML/MIN; Glucose 104 mg/dL (74-106); Potassium 4.3 mmol/L (3.5-5.1); SODIUM 137 mmol/L (137-145)
[2022-07-20] MEDS ORDERED: Amidate 20 MG/10 ML IV ONE (10:58)
[2022-07-20] MEDS ORDERED: Zemuron 100 MG/10 ML ONE ×2 (10:58→12:11)
[2022-07-20] MEDS ORDERED: Versed 2 MG/2 ML Injection ONE (10:58)
[2022-07-20] MEDS ORDERED: SUBLIMAZE 100 MCG/2 ML ONE ×2 (10:58→12:01)
[2022-07-20] MEDS ORDERED: BRIDION 200MG/2ML IV ONE (12:24)
[2022-07-20] MEDS ORDERED: BREVIBLOC 100 MG/10 ML IV ONE (12:29)
[2022-07-20] MEDS ORDERED: NORCO 5/325 MG PO ONE (13:25)
[2022-07-20 13:31] VITALS: BP 143/70; PULSE 57; O2SAT 93
--- NOTE | 2022-07-21 08:04 | OP ---
SURGERY DATE/TIME: 07/20/2022 1122 PREOPERATIVE DIAGNOSIS: Acute exacerbation of chronic cholecystitis, symptomatic cholelithiasis. POSTOPERATIVE DIAGNOSIS: Acute exacerbation of chronic cholecystitis, symptomatic cholelithiasis. PROCEDURE: Laparoscopic cholecystectomy. SURGEON: Dr. Fili Flores. ANESTHESIA: General. ESTIMATED BLOOD LOSS: Minimal. INDICATIONS: As noted above. Risks and benefits explained in detail but not limited to and consent obtained. DESCRIPTION OF PROCEDURE AND FINDINGS: The patient was taken to the operating room. General anesthesia induced. Abdomen prepped and draped in usual sterile fashion. After official time out and no disagreement with planned procedure, a transverse incision made in the supraumbilical area. Fascia grasped, pulled upward. Veress needle inserted and tested with saline. Pneumoperitoneum accomplished insufflating opening pressure of 0-15. A 5 mm bladeless port and camera were inserted without difficulty followed by two - 5 mm right upper quadrant ports and 11 mm epigastric port. The gallbladder is grasped. He had some chronic inflammatory reaction. Dissection carried posterior, lateral to anterior fashion slowly and carefully cystic duct and infundibular junction carefully well skeletonized until the critical view was obtained both anteriorly and posteriorly. Once this is accomplished, the cystic duct and cystic artery were clipped x3 and divided in the usual fashion. The gallbladder is slowly and carefully dissected free from its dense attachments clipping additional oozing side branch off of the cystic artery and cystic vein as necessary directly on the gallbladder wall. Just towards the anterior edge of the liver, there was an accessory duct going directly into the gallbladder back into the anterior edge of the liver, this required clipping as well. It was clipped x3 and divided. It was felt this was an accessory duct as it was near anterior edge of the liver. Continued dissecting. Just prior to releasing from final attachments to the anterior edge of the liver, the liver bed re-inspected. Clips noted in place in the cystic duct and cystic artery stumps. No signs of any active bleeding or bile leakage. There was scant ooze on the anterior edge of the liver surface controlled with brief bursts of cautery. Good hemostasis noted. The gallbladder was released from final attachments to anterior edge of the liver, placed in a bag and spreading the fascia slightly in the epigastrium was able to be pulled free and passed off. The fascial defect was then closed with puncture closure device with #1 Vicryl. Port is replaced. Copious amount of irrigation accomplished lateral to the liver and subhepatic space irrigating clear. Good hemostasis noted. Clips noted to be in place cystic duct and cystic artery stumps. No signs of any active bleeding or bile leakage. It was felt there was no benefit in drain placement. Pneumoperitoneum decompressed. The wound irrigated out. Skin incision closed with 4-0 Vicryl. Steri-Strips and sterile dressing applied. The patient tolerated the procedure well. Findings discussed with the family out in the waiting area.
== END 2022-07-20 13:42 | disposition home or self-care (01) ==
LOC: SDC 08:34
PROVIDERS: ATTEND Surgery
DX: K80.00 Calculus of gallbladder with acute cholecystitis without obstruction (principal)
CPT/HCPCS: 36415; 80048; 99100; J0694; J2250; J3010; A9270-GY